=== PATIENT | female | born 1965 | race Caucasian/White ===

== ENCOUNTER 2017-11-25 15:57 | Emergency (ER) | payer MEDICAID ==
[2017-11-25] MEDS ORDERED: DIAZEPAM 5 MG TAB PO ONE (16:48)
--- NOTE | 2017-11-25 16:52 | EDPHY ---
H & P Time Seen by Provider: 11/25/17 16:43 HPI/ROS: HPI Panic attack. 52-year-old female by private vehicle with her . This patient is from the [facility]. Her father lives in an assisted living facility here in [place]. She and her were down here going through some of her father's things. This apparently triggered memories from her childhood, her mother and her father dog. She reports also that her father's dog is currently the stain with her stepbrother whom she does not like. She does not feel that the dog is being adequately taking care of. She is currently looking into assuming care of the dog. She states that all of this triggered a panic attack which she describes as numbness and tingling in her hands and feet as well as shortness of breath and a fast heart rate. She is feeling better now. She denies suicidal ideation. She has no other complaints. ROS: Constitutional: No fever, no chills. As above. Respiratory: No cough. As above. Cardiac: No chest pain, as above. Gastrointestinal: No abdominal pain, no vomiting, no diarrhea. Neurological: No headache. No focal weakness or altered sensation. Past medical history: Anxiety, depression, panic attacks, hypertension. She does have a therapist up in the [facility]. Social history: Nonsmoker. No alcohol. Here with her . Physical Exam: General Appearance: Alert, pleasant but emotionally labile.. This patient is responding to questions appropriately and in full sentences. This patient appears well-hydrated and well-nourished. Eyes: Pupils equal and round no pallor or injection. No lid edema, erythema or injection. Respiratory: There are no retractions, lungs are clear to auscultation with good air movement bilaterally. No tachypnea. Cardiovascular: Regular rate and rhythm. No murmur. Gastrointestinal: Abdomen is soft and nontender, no masses, bowel sounds normal. No focal tenderness at McBurney's point. No Padilla sign. Neurological: Motor sensory function is grossly intact. Cranial nerves are normal. Gait is normal. Skin: Warm and dry, no rashes. Musculoskeletal: Neck is supple and nontender. Extremities are symmetrical. All joints range without pain or impingement. Psychiatric: No agitation. No depression. Database: EKG: Imaging: Procedures: Emergency department course: Her vital signs reviewed and are normal. The patient will be given 5 mg of oral Valium. 5:20 p.m., the patient was re-evaluated. She is resting comfortably at this time. She feels better at this time. She denies being suicidal. She feels comfortable going home with her and I feel she is safe for discharge. Follow-up with her therapist was discussed. Return to emergency department precautions reviewed. All of her questions were answered. The patient was discharged in good condition. Differential Diagnosis: The differential diagnosis on this patient includes but is not limited to anxiety, panic attack, situational depression. Suicidal ideation, arrhythmia unlikely. This represents a partial list of diagnoses considered. These considerations are based on history, physical exam, past history, reassessment and diagnostic testing. Smoking Status: Never smoked Constitutional: Initial Vital Signs Temperature (C) 36.9 C 11/25/17 15:57 Heart Rate 85 11/25/17 15:57 Respiratory Rate 16 11/25/17 15:57 Blood Pressure 107/96 H 11/25/17 15:57 O2 Sat (%) 95 11/25/17 15:57 O2 Delivery Mode Room Air Allergies/Adverse Reactions: latex Allergy (Verified 11/25/17 16:10) Home Medications: Medication Instructions Recorded Citalopram 11/25/17 Dicyclomine 11/25/17 Triamterene-Hctz 50-25 mg Cap 11/25/17 Departure - Departure Disposition: Home, Routine, Self-Care Clinical Impression: Panic attack Condition: Good Instructions: Panic Attack (ED) Additional Instructions: Read and follow provided instructions. Follow-up with your therapist on Tuesday for re-evaluation. Avoid stressful situations with family. Take your medication as prescribed. Return to the emergency department for worsening symptoms, suicidal thoughts or other serious concerns. Referrals: ZAIDA COTE MD [Other] - As per Instructions
[2017-11-25 17:27] VITALS: BP 153/74
== END 2017-11-25 17:27 | disposition home or self-care (01) ==
DX: F41.0 Panic disorder [episodic paroxysmal anxiety] (principal)